=== PATIENT | female | born 1960 | race Caucasian/White ===

== ENCOUNTER 2017-11-01 09:34 | Emergency (ER) | payer MEDICARE, OTHER ==
[2017-11-01 10:12] VITALS: O2SAT 98
[2017-11-01] MEDS ORDERED: TORAdol 30 mg Injection IM ONE (10:13)
--- NOTE | 2017-11-01 10:14 | ERPHSYRPT ---
- History of Present Illness Time Seen by Provider: 11/01/17 09:59 Source: patient, family Exam Limitations: no limitations Physician History: The patient is a 57-year-old female with her complaining that she slipped yesterday while moving some brush that she had cut down, falling onto her right knee, and striking a cut small stump. This caused a puncture wound to her right knee. She immediately had washed up the puncture wound in the house. Today it is hurting more. Her past medical history is significant for ADD, chronic back pain, and diabetes. Occurred: yesterday Reason for Fall: tripped, fell from standing pos Injuries/Pain Location: lower extremity Loss of Consciousness: no loss of consciousness Quality: sharpness Severity of Pain-Max: moderate Severity of Pain-Current: moderate Modifying Factors: Improves With: nothing Associated Symptoms (Fall): denies symptoms Allergies/Adverse Reactions: codeine Allergy (Verified 11/01/17 10:03) Home Medications: Buprenorphine HCl/Naloxone HCl [Suboxone 8 mg-2 mg Sl Film] 2 mg SL DAILY [History] Dextroamphetamine/Amphetamine [Amphetamine Salts 30 mg Tablet] 30 mg PO BID [History] Gabapentin [Gabapentin] 400 mg PO TID 11/01/17 [History] Insulin Lispro [Humalog Kwikpen U-100] 100 unit SQ UD 11/01/17 [History] Lisdexamfetamine Dimesylate [Vyvanse] 50 mg PO DAILY 11/01/17 [History] - Review of Systems Constitutional: No Fever, No Chills Eyes: No Symptoms Ears, Nose, & Throat: No Symptoms Respiratory: No Cough, No Dyspnea Cardiac: No Chest Pain, No Edema, No Syncope Abdominal/Gastrointestinal: No Abdominal Pain, No Nausea, No Vomiting, No Diarrhea Genitourinary Symptoms: No Dysuria Musculoskeletal: Fall, Injury Skin: Other (puncture wound), No Rash Neurological: No Dizziness, No Focal Weakness, No Sensory Changes Psychological: No Symptoms Endocrine: No Symptoms Hematologic/Lymphatic: No Symptoms Immunological/Allergic: No Symptoms All Other Systems: Reviewed and Negative - [place]burn Coma Score Best Eye Response (Jaden): (4) open spontaneously Best Verbal Response (Jaden): (5) oriented Best Motor Response (Heyburn): (6) obeys commands [place]burn Total: 15 - Physical Exam General Appearance: no apparent distress, alert Head Injury: no evidence of injury Eye Exam: PERRL/EOMI ENT Exam: airway nml Neck Exam: normal inspection, No tenderness Respiratory/Chest Exam: normal breath sounds, No chest tenderness, No respiratory distress Cardiovascular Exam: normal heart sounds, regular rate/rhythm Gastrointestinal Exam: soft, No tenderness, No distention, No guarding, No ecchymosis Rectal Exam: not done Back Exam: normal inspection, No vertebral tenderness Extremity Exam: tenderness (right lateral knee) Neurologic Exam: alert, oriented x 3, cooperative, sensation nml, No motor deficits Skin Exam: laceration (puncture laceration to right lateral knee with skin avulsion) - Departure Time of Disposition: 10:18 Departure Disposition: Home Clinical Impression: Puncture wound Condition: Stable Critical Care Time: No Referrals: CHRISTIAN BYRNES [Primary Care Provider] - Additional Instructions: You have a puncture wound to your right knee. You were given Toradol 60 mg IM in the ER. You were given Augmentin 875 2 tablets to take home for use today taking 1 tablet 2 times a day. You have a prescription for Augmentin 1 tablet twice a day for 10 days. Also take Toradol 10 mg every 6 hours as needed for pain. Keep the wound clean and covered. Follow-up as needed. Prescriptions: Ketorolac Tromethamine [Toradol] 10 mg PO Q6H PRN PRN #20 tablet PRN Reason: Pain Amoxicillin/Potassium Clav [Augmentin 875-125 Tablet] 1 each PO BID #20 tablet
[2017-11-01] MEDS ORDERED: Adacel Vial IM ONE ×2 (10:19→10:24)
[2017-11-01] MEDS ORDERED: TORAdol 30 mg Injection ONE (10:24)
[2017-11-01] MEDS ORDERED: Augmentin 875-125 Tablet PO SCH (10:30)
[2017-11-01] MEDS ORDERED: Augmentin 875-125 Tablet ONE ×2 (10:41→11:04)
[2017-11-01 10:46] VITALS: BP 165/96; PULSE 88
[2017-11-01] MEDS ORDERED: Augmentin 875-125 Tablet PO ONE (10:46)
== END 2017-11-01 11:12 | disposition home or self-care (01) ==
LOC: ED 09:34
DX: S81.031A Puncture wound without foreign body, right knee, initial encounter (principal); W01.198A Fall on same level from slipping, tripping and stumbling with subsequent striking against other object, initial encounter; Y93.H2 Activity, gardening and landscaping
CPT/HCPCS: 90471; 90715; 96372; 99284; J1885; A9270-GY

== ENCOUNTER 2022-07-12 16:33 | Emergency (ER) | payer MEDICARE ==
--- NOTE | 2022-07-12 17:14 | ERPHSYRPT ---
- History of Present Illness Time Seen by Provider: 07/12/22 16:50 Source: patient Exam Limitations: no limitations Patient Subjective Stated Complaint: C/O hematuria that started this morning. No pain. Triage Nursing Assessment: Patient ambulated back to ED without difficulties. No SOB. She is alert and oriented. No tenderness with abdominal palpation. Skin tone normal. Physician History: 62 years old female with history of coronary artery disease status post stenting on Brilinta/aspirin, chronic back pain presented in the ER with chief complaint of painless hematuria since morning. Denies any burning, increased frequency, fever chills or flank pain. Patient denies any vaginal bleeding. Patient was seen initially at urgent care and sent in here for further work-up. Timing/Duration: today, sudden Activites at Onset: none Pain Radiation: none Severity of Pain-Max: none Severity of Pain-Current: none Prior abdominal problems: none Sexual intercourse history: non-contributory Modifying Factors: Improves With: nothing Allergies/Adverse Reactions: codeine Allergy (Verified 07/12/22 16:42) Iodinated Contrast Media Allergy (Verified 07/12/22 16:42) Home Medications: Albuterol Sulfate [Albuterol Sulfate Hfa] 2 puff PO Q6H PRN PRN 07/12/22 [Histo ry] Atorvastatin Calcium [Lipitor] 1 tab PO HS 07/12/22 [History] Dextroamphetamine/Amphetamine [Dextroamp-Amphetamin 30 mg Tab] 1 tab PO BID 07/12/22 [History] Gabapentin 1 cap PO TID 07/12/22 [History] Insulin Glargine [Lantus Insulin] 50 unit SQ DAILY 07/12/22 [History] Insulin Lispro [Humalog] 34 unit SQ TIDWMEALS 07/12/22 [History] Isosorbide Mononitrate 30 mg [Imdur 30 MG] 1 tab PO DAILY 07/12/22 [History] Metoprolol Succinate [Toprol Xl] 12.5 mg PO DAILY 07/12/22 [History] Modafinil 100 mg [Provigil 100MG Tablet] 200 mg PO BID 07/12/22 [History] Naltrexone HCl 1 tab PO DAILY 07/12/22 [History] Naltrexone HCl 1 tab PO DAILY 07/12/22 [History] Ticagrelor [Brilinta] 1 tab PO BID 07/12/22 [History] Torsemide 1 tab PO DAILY 07/12/22 [History] lisinopriL [Zestril] 1 tab PO DAILY 07/12/22 [History] Hx Tetanus, Diphtheria Vaccination/Date Given: Yes Hx Influenza Vaccination/Date Given: No Hx Pneumococcal Vaccination/Date Given: No Travel Risk - International Travel Have you traveled outside of the country in past 3 weeks: No - Coronavirus Screening Are you exhibiting any of the following symptoms?: No Close contact with a COVID-19 positive Pt in past 14-21 Days: No - Vaccine Status Have you recieved a Covid-19 vaccination: No - Review of Systems Constitutional: No Symptoms Eyes: No Symptoms Ears, Nose, & Throat: No Symptoms Respiratory: No Symptoms Cardiac: No Symptoms Abdominal/Gastrointestinal: No Symptoms Genitourinary Symptoms: Hematuria Musculoskeletal: No Symptoms Skin: No Symptoms Neurological: No Symptoms Psychological: No Symptoms Endocrine: No Symptoms Hematologic/Lymphatic: No Symptoms Immunological/Allergic: No Symptoms - Past Medical History Pertinent Past Medical History: Yes Neurological History: Peripheral Neuropathy Cardiac History: Coronary Artery Disease, High Cholesterol, Hypertension, Myocardial Infarction (AR) Respiratory History: Asthma Endocrine Medical History: Diabetes Type II Musculoskeletal History: Arthritis GI Medical History: GERD Psycho-Social History: Anxiety, Depression Other Medical History: narcolepsey - Past Surgical History Past Surgical History: Yes Cardiac: Cardiac Catheterization, Cardiac Stent Musculoskeletal: Orthopedic Surgery Female Surgical History: Dilation & Curettage, Section Other Surgical History: carpal tunnel - Social History Smoking Status: Former smoker How long have you smoked: 15 Exposure to second hand smoke: Yes Drug Use: none Patient Lives Alone: No - Nursing Vital Signs Nursing Vital Signs: Initial Vital Signs Temperature 97.5 F 07/12/22 16:44 Pulse Rate 68 07/12/22 16:44 Respiratory Rate 18 07/12/22 16:44 Blood Pressure 125/54 07/12/22 16:44 O2 Sat by Pulse Oximetry 99 07/12/22 16:44 Pain Scale Pain Intensity 0 - Physical Exam General Appearance: no apparent distress, alert Eye Exam: PERRL/EOMI Ears, Nose, Throat Exam: normal ENT inspection, pharynx normal Neck Exam: normal inspection, non-tender, supple, full range of motion Respiratory Exam: normal breath sounds, lungs clear Cardiovascular Exam: regular rate/rhythm, normal heart sounds Gastrointestinal/Abdomen Exam: soft, normal bowel sounds, No tenderness Back Exam: normal inspection, normal range of motion Extremity Exam: normal inspection Neurologic Exam: alert, oriented x 3, cooperative Skin Exam: normal color SpO2 Interpretation: normal SpO2: 99 O2 Delivery: Room Air Ordered Tests: Active Orders 24 hr Category Date Time Status ABDOMEN AND PELVIS W/0 CONTRAS [CT] Stat Exams 07/12/22 16:51 Completed CBC W DIFF Stat Lab 07/12/22 17:34 Completed CMP Stat Lab 07/12/22 17:34 Received PROTIME WITH INR Stat Lab 07/12/22 17:35 Received PTT Stat Lab 07/12/22 17:35 Received UA W/RFX CULTURE Stat Lab 07/12/22 17:13 Completed Medication Summary Discontinued Medications Generic Name Dose Route Start Last Admin Trade Name Connie PRN Reason Stop Dose Admin Tamsulosin HCl 0.4 mg 07/12/22 17:41 07/12/22 17:46 Tamsulosin Hcl 0.4 Mg Cap PO 07/12/22 17:42 0.4 mg ONCE STA Administration Tamsulosin HCl Confirm 07/12/22 17:45 Tamsulosin Hcl 0.4 Mg Cap Administered 07/12/22 17:46 Dose 0.4 mg .ROUTE .Vaxart ONE Lab/Rad Data: Laboratory Result Diagrams 07/12/22 17:34 Laboratory Results 07/12/22 07/12/22 Range/Units 17:34 17:13 WBC 8.2 (4.0-10.5) x10^3/uL RBC 3.69 L (4.1-5.4) x10^6/uL Hgb 11.3 L (12.0-16.0) g/dL Hct 34.2 L (35-47) % MCV 92.7 (78-100) fL MCH 30.6 (26-32) pg MCHC 33.0 (32-36) g/dL RDW 12.6 (11.5-14.0) % Plt Count 267 (150-450) x10^3/uL MPV 10.4 (7.5-11.0) fL Gran % 53.6 (36.0-66.0) % Immature Gran % (Auto) 0.4 (0.00-0.4) % Nucleat RBC Rel Count 0.0 (0.00-0.1) % Eos # (Auto) 0.18 (0-0.5) x10^3/uL Immature Gran # (Auto) 0.03 (0.00-0.03) x10^3u/L Absolute Lymphs (auto) 2.81 (1.0-4.6) x10^3/uL Absolute Monos (auto) 0.70 (0.0-1.3) x10^3/uL Absolute Nucleated RBC 0.00 (0.00-0.01) x10^3u/L Lymphocytes % 34.5 (24.0-44.0) % Monocytes % 8.6 (0.0-12.0) % Eosinophils % 2.2 (0.00-5.0) % Basophils % 0.7 (0.0-0.4) % Absolute Granulocytes 4.37 (1.4-6.9) x10^3/uL Basophils # 0.06 (0-0.4) x10^3/uL Urinalys Dipstick Clnc MAIN LAB Urine Color DARK YELLOW (YELLOW) Urine Appearance SLIGHTLY CLOUDY A (CLEAR) Urine pH 5.5 (5-6) Ur Specific [place] 1.020 (1.005-1.025) POC Urine Protein Conf NEGATIVE (Negative) Urine Ketones NEGATIVE (NEGATIVE) Urine Nitrite NEGATIVE (NEGATIVE) Urine Bilirubin NEGATIVE (NEGATIVE) Urine Urobilinogen 0.2 (0-1) mg/dL Urine Leukocytes NEGATIVE (NEGATIVE) Urine WBC (Auto) 0-2 (0-5) /HPF Urine RBC (Auto) >101 A (0-2) /HPF U Epithel Cells (Auto) RARE (FEW) /HPF Urine Bacteria (Auto) NONE (NEGATIVE) /HPF Urine RBC LARGE A (0-5) [place]/ul Urine Mucus (Auto) SLIGHT A (NEGATIVE) /HPF Ur Culture Indicated? NO Urine Glucose NEGATIVE (NEGATIVE) mg/dL - Progress Progress: re-examined Air Movement: good Progress Note: 07/12/22 17:57 62 years old is evaluated for painless hematuria since morning with chronic back pain. She is not in any distress. She has normal white count, grossly unremarkable chemistries. No UTI, urinalysis consistent with stone with a lot of RBCs. CT abdomen pelvis without contrast showed 2 small 1 mm and 2 mm stone with partial obstructive uropathy. She is given Flomax. I do not think patient needs to be transferred as I believe she will be able to pass the stones, will continue with Flomax, pain medications as needed and outpatient urology follow- up. Discussed signs symptoms of worsening needing return to ER which she seems understanding. Blood Culture(s) Obtained: No Antibiotics given: Yes Counseled pt/family regarding: lab results, diagnosis, rad results - Departure Departure Disposition: Home Clinical Impression: Ureterolithiasis Condition: Stable Critical Care Time: No Referrals: SUSSY STYLES MD [Primary Care Provider] - Follow Up with PCP/3 days DEBRA MELENDEZ [COURTESY STAFF] - Follow up/PCP as directed (Call Thursday for reevaluation) Instructions: Kidney Stones (DC) Additional Instructions: Take Tylenol/ibuprofen as needed for pain. Drink plenty of fluids to keep yourself well-hydrated. Follow-up with primary care and urology for reevaluatio n. Return to ER for worsening hematuria/blood in urine, if develop pain, fever, chills, intractable vomiting, difficulty urination etc. Prescriptions: Tamsulosin HCl 0.4 mg [Flomax 0.4 MG] 0.4 mg PO DAILY #30 cap Cefpodoxime Proxetil 200 mg [Vantin 200 mg] 200 mg PO BID 7 Days #14 tablet
[2022-07-12 17:38] LABS: Absolute Neutrophil Ct (ANC) 4.37 x10^3/uL (1.4-6.9); Basophil (Absolute #) 0.06 x10^3/uL (0-0.4); Eosinophil % 2.2 % (0.00-5.0); Eosinophil (Absolute #) 0.18 x10^3/uL (0-0.5); Hematocrit 34.2 % (35-47); Hemoglobin 11.3 g/dL (12.0-16.0); Lymphocyte (Absolute #) 2.81 x10^3/uL (1.0-4.6); Lymphocytes % 34.5 % (24.0-44.0); Mean Cell Volume 92.7 fL (78-100); Mean Corpuscular Hemoglobin 30.6 pg (26-32); Mean Platelet Volume 10.4 fL (7.5-11.0); Monocytes % 8.6 % (0.0-12.0); Neutrophil % 53.6 % (36.0-66.0); Platelet Count 267 x10^3/uL (150-450); Red Blood Count 3.69 x10^6/uL (4.1-5.4); Red Cell Distribution Width 12.6 % (11.5-14.0); White Blood Count 8.2 x10^3/uL (4.0-10.5)
[2022-07-12] MEDS ORDERED: Flomax 0.4 MG PO STA (17:41)
[2022-07-12 17:45] LABS: Appearance SLIGHTLY CLOUDY (CLEAR); Bilirubin NEGATIVE (NEGATIVE); Glucose NEGATIVE (NEGATIVE); Ketones NEGATIVE (NEGATIVE)
[2022-07-12] MEDS ORDERED: Flomax 0.4 MG ONE (17:45)
[2022-07-12 17:46] LABS: Dipstick done @ ? MAIN LAB; Nitrite NEGATIVE (NEGATIVE); Ph 5.5 (5-6); Protein,Urine Dip NEGATIVE (Negative); RBC LARGE Ery/ul (0-5); Urobilinogen 0.2 mg/dL (0-1)
[2022-07-12 17:47] LABS: Epithelial Cells RARE /HPF (FEW); Mucus SLIGHT /HPF (NEGATIVE); RBC >101 /HPF (0-2); Urine Cultured Indicated? NO; WBC 0-2 /HPF (0-5)
--- NOTE | 2022-07-12 17:50 | XRAY ---
Indication: Gross hematuria. Multiple contiguous axial images obtained through the abdomen and pelvis without contrast using renal stone protocol. Comparison: None Lung bases demonstrates mild dependent atelectasis, scattered fibrosis/scarring, and tiny left base calcified granuloma. Heart not enlarged. Proximal right ureter demonstrates 2 micro-calculi, largest 4-5 mm, approximately L2-L3 interspace level. Right kidney demonstrates minimal hydronephrosis. Additional micro-calculus in each kidney. Noncontrasted stomach and bowel loops appear nonobstructed. No free fluid/air. Remaining liver, gallbladder, pancreas, spleen, adrenal glands, bladder, and uterus appear unremarkable for noncontrast exam. Moderate scattered aortoiliac calcifications without AAA. Osseous structures intact with minimal/mild degenerative changes throughout the thoracolumbar spine and 4-5 mm L4 anterolisthesis. Impression: 1. Two proximal right ureter micro-calculi producing minimal obstructive uropathy. Additional micro-calculus in each kidney. 2. Chronic findings including arteriosclerotic disease, multilevel degenerative spondylosis, and minimal grade 1 L4 listhesis. Comment: Preliminary interpretation made by [facility]. No critical discrepancy.
[2022-07-12 17:52] LABS: ALBUMIN 4.2 g/dL (3.5-5.0); ALKALINE PHOSPHATASE 110 U/L (38-126); BLOOD UREA NITROGEN 15 mg/dL (7-17); CHLORIDE 100 mmol/L (98-107); Carbon Dioxide 30 mmol/L (22-30); Creatinine 1 0.83 mg/dL (0.52-1.04); EST GLOMERULAR FILTRATION RATE > 60.0 ML/MIN; Glucose 143 mg/dL (74-106); Potassium 3.5 mmol/L (3.5-5.1); SGOT/AST 22 U/L (14-36); SGPT/ALT 28 U/L (0-35); SODIUM 137 mmol/L (137-145); Total Protein 7.5 g/dL (6.3-8.2)
[2022-07-12 17:54] LABS: INR 1.05 (0.8-3.0); PROTIME 11.1 SECONDS (9.4-12.5); PTT 26.6 SECONDS (25.1-36.5)
[2022-07-12 18:29] VITALS: BP 121/67; PULSE 57; O2SAT 97
== END 2022-07-12 18:32 | disposition home or self-care (01) ==
LOC: ED 16:33
DX: N20.1 Calculus of ureter (principal); R31.9 Hematuria, unspecified; E78.5 Hyperlipidemia, unspecified; I10 Essential (primary) hypertension; E11.42 Type 2 diabetes mellitus with diabetic polyneuropathy; Z79.4 Long term (current) use of insulin; Z79.02 Long term (current) use of antithrombotics/antiplatelets; Z79.899 Other long term (current) drug therapy; Z28.310 Unvaccinated for COVID-19
CPT/HCPCS: 36415; 74176; 80053; 81015; 85025; 85610; 85730; 99283; A9270-GY